=== PATIENT | female | born 1955 | race Caucasian/White ===

== ENCOUNTER → 2016-07-25 | Outpatient (CLI) | payer OTHER, BC | LOC: BMCIMAGING 12:29 | PROVIDERS: ATTEND Internal Medicine | DX: Z12.31 Encounter for screening mammogram for malignant neoplasm of breast (principal) | CPT/HCPCS: G0202 ==

== ENCOUNTER 2017-07-04 10:37 | Day surgery (SDC) | payer OTHER, BC ==
[2017-07-04] MEDS ORDERED: LR 1,000 ML IV ONE (10:53)
[2017-07-04] MEDS ORDERED: BUPIVACAINE 0.5% 30 ML SDV ONE (11:15)
--- NOTE | 2017-07-04 11:50 | PDANEPAE ---
ANE Past Medical History - Cardiovascular History Hx Hypertension: No Hx Arrhythmias: No Hx Chest Pain: No Hx Coronary Artery / Peripheral Vascular Disease: No Hx CHF / Valvular Disease: No Hx Palpitations: No Cardiovascular History Comment: LEIDEN FACTOR 5 - Pulmonary History Hx COPD: No Hx Asthma/Reactive Airway Disease: No Hx Recent Upper Respiratory Infection: No Hx Oxygen in Use at Home: No Hx Sleep Apnea: No Sleep Apnea Screening Result - Last Documented: Negative - Neurologic History Hx Cerebrovascular Accident: No Hx Seizures: No Hx Dementia: No - Endocrine History Hx Diabetes: No - Renal History Hx Renal Disorders: No - Liver History Hx Hepatic Disorders: No - Neurological & Psychiatric Hx Hx Neurological and Psychiatric Disorders: Yes Neurological / Psychiatric History Comment: 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 - Cancer History Hx Cancer: No - Congenital Disorder History Hx Congenital Disorders: No - GI History Hx Gastrointestinal Disorders: No - Other Health History Other Health History: R WRIST PAIN DUE TO RADIAL STYLOID TENOSYNOVITIS;. EYE DROPS/GEL FOR DRY EYES - Chronic Pain History Chronic Pain: No - Surgical History Prior Surgeries: C SECTIONS X2. L WRIST DE QUERVAIN'S SX ANE Review of Systems Review of Systems: - Exercise capacity METS (RN): 5 METS ANE Patient History - Allergies Allergies/Adverse Reactions: No Known Allergies Allergy (Verified 07/03/17 14:11) - Home Medications Home Medications: Aspirin 81mg (*) 07/03/17 [Last Taken 07/02/17 08:00] Citalopram 07/03/17 [Last Taken 07/04/17] Systane Gel Eye Drops 07/03/17 [Last Taken 07/04/17] - NPO status NPO Since - Liquids (Date): 07/04/17 NPO Since - Liquids (Time): 09:00 NPO Since - Solids (Date): 07/03/17 NPO Since - Solids (Time): 20:30 - Smoking Hx Smoking Status: Never smoked ANE Labs/Vital Signs - Vital Signs Blood Pressure: 99/51 Heart Rate: 61 Respiratory Rate: 16 O2 Sat (%): 94 Height: 164.47 cm Weight: 58.967 kg ANE Physical Exam - Airway Mallampati Score: Class 2 - ASA Status ASA Status: II ANE Anesthesia Plan Anesthesia Plan: GA w LMA
[2017-07-04] MEDS ORDERED: ceFAZolin 2 GM/SWFI 2 GM/20 ML SYR IVP ONE (11:58)
--- NOTE | 2017-07-04 11:58 | PDHPUP ---
History & Physical Update H&P update statement: This history and physical update is based on an assessment of the patient which was completed after admission or registration (within 24 hours), but prior to the surgery/procedure. H&P update: no change in patient's condition since H&P completed
--- NOTE | 2017-07-04 12:02 | POSTOPPROG ---
Post Op Note Date of Operation: 07/04/17 Surgeon: Kenneth Rudd Anesthesiologist: Anesthesia: IV Sedation Pre-op Diagnosis: Right deQuervain's Post-op Diagnosis: same Indication: Pain Procedure: Right deQuervain's release Findings: inflamation Inf/Abcess present in the surg proc area at time of surgery?: No Depth: Deep Incisional (Fascial) EBL: Minimal Total fluids administered: 600cc Specimen(s): none
[2017-07-04] MEDS ORDERED: MIDAZOLAM 2 MG/2 ML VIAL ONE (12:07)
[2017-07-04] MEDS ORDERED: fentaNYL 100 MCG/2 ML INJ ONE (12:08)
[2017-07-04] MEDS ORDERED: PROPOFOL 200 MG/20 ML VIAL ONE (12:08)
[2017-07-04] MEDS ORDERED: METOCLOPRAMIDE 10 MG/2 ML VIAL ONE (12:49)
[2017-07-04] MEDS ORDERED: ONDANSETRON 4 MG/2 ML VIAL ONE (12:49)
[2017-07-04] MEDS ORDERED: LIDOCAINE 2% JELLY 5 ML TUBE ONE (12:49)
[2017-07-04] MEDS ORDERED: fentaNYL 100 MCG/2 ML INJ IVP PRN (13:00)
[2017-07-04] MEDS ORDERED: ACETAMINOPHEN 500 MG TAB PO PRN (13:00)
[2017-07-04] MEDS ORDERED: NALOXONE HCL 0.4 MG/ML INJ IVP PRN (13:00)
[2017-07-04] MEDS ORDERED: LR 500 ML IV PRN (13:00)
--- NOTE | 2017-07-04 13:02 | POSTANESTH ---
Post Anesthetic Evaluation Cardiovascular Status: Normal, Stable Respiratory Status: Normal, Stable Level of Consciousness/Mental Status: Can Participate in Eval Pain Control: Adequate, Prn Tx Ordered Nausea/Vomiting Control: Adequate, Prn Tx Ordered Complications Possibly Related to Anesthesia: None Noted
--- NOTE | 2017-07-04 13:18 | GOP ---
[f rep st] OPERATIVE REPORT DATE OF OPERATION: 07/04/2017 SURGEON: Kenneth Rudd MD PREOPERATIVE DIAGNOSIS: Right de Quervain tenosynovitis. POSTOPERATIVE DIAGNOSIS: De Quervain tenosynovitis with marked inflammatory reaction and fluid accum ulation at the abductor pollicis longus tendon and septation of the first dorsal compartment. PROCEDURE PERFORMED: Right first dorsal compartment release and tenosynovectomy. FINDINGS: INDICATIONS: As above. DESCRIPTION OF PROCEDURE: Under local infiltration block with 0.5% plain Marcaine and with LMA anest hesia, the patient's right arm was prepped and draped in the usual fashion, and through a gentle curv ed incision at the radial aspect of the right wrist at the level of the radial styloid and progressin g proximally for about 2 inches, skin and subcutaneous tissue were reflected. One large branch of th e radial sensory nerve was identified at the operative area, along with the cephalic vein. Those wer e both mobilized and reflected. First dorsal compartment was found to be bulging with fluid and that was opened. The straw-colored serous fluid drained out of the area. There was marked inflammatory tenosynovium along the course of the abductor longus, not the extensor brevis. The extensor brevis w as in a separate compartment. The first dorsal compartment had been septated into 2 and there was ve ry significant tightness of the compartment for the abductor longus. Extensor brevis was fine. The first dorsal compartment was excised. The inflammatory tenosynovium was excised. It was assured araceli t the tendons were freed all the way down to the basal thumb area and that there was no entrapment ap proximately. The fibrous ridges dorsally and palmarly from this thickened first dorsal compartment w ere removed to create a smooth surface at the radial aspect of the wrist and the tendons glided nicel y with dorsal and palmar flexion. The wound was irrigated with body temperature saline. Some additi onal half plain Marcaine was instilled in the operative area. A total of 6 cc was used. The skin wa s closed with horizontal mattress sutures of 5-0 Prolene, and then a bulky soft pressure dressing was applied, followed by fiberglass thumb spica splint held in place with an Cristo bandage. Tourniquet de flation resulted in immediate pinking of the digits. She was brought to the recovery area where madhav mason postoperative instructions were given prior to discharge, followup arrangements in the office fo r about a week postop for dressing and suture removal and remobilization exercises. /[id number]/MODL
[2017-07-04 14:04] VITALS: BP 88/59
== END 2017-07-04 14:00 | disposition home or self-care (01) ==
LOC: FSGY 10:37
PROVIDERS: ATTEND Specialist
PROC: 0LN50ZZ Release Right Lower Arm and Wrist Tendon, Open Approach (ICD-10-PCS; principal; 2017-07-04 12:00)
PROC: 0RBN0ZZ Excision of Right Wrist Joint, Open Approach (ICD-10-PCS; principal; 2017-07-04 12:00)
DX: M65.4 Radial styloid tenosynovitis [de Quervain] (principal); D68.51 Activated protein C resistance; Z79.82 Long term (current) use of aspirin
CPT/HCPCS: J0690; J2250; J2405; J2704; J2765; J3010

== ENCOUNTER → 2017-07-26 | Outpatient (CLI) | payer OTHER, BC | LOC: BMCIMAGING 12:18 | PROVIDERS: ATTEND Internal Medicine | DX: Z12.31 Encounter for screening mammogram for malignant neoplasm of breast (principal); Z80.3 Family history of malignant neoplasm of breast ==

== ENCOUNTER → 2018-06-12 | Outpatient (CLI) | payer OTHER, BC | LOC: FIMAGING 13:22 | PROVIDERS: ATTEND Obstetrics & Gynecology Gynecology | DX: Z13.820 Encounter for screening for osteoporosis (principal); M85.80 Other specified disorders of bone density and structure, unspecified site ==

== ENCOUNTER → 2018-07-28 | Outpatient (CLI) | payer OTHER, BC | LOC: BMCIMAGING 12:43 ==